=== PATIENT | male | born 1995 | race American Indian/Alaskan Native ===

== ENCOUNTER 2019-04-24 20:53 | Emergency (ER) | payer MEDICAID, OTHER ==
[~2019-04-24 20:53] MED LIST: Diphtheria,Pertussis(Acell),Tetanus Vaccine 0.5 ML SDV IM ONE; Iopamidol 612 MG/ML 100 ML Bottle IVPUSH ONE; Iopamidol 612 MG/ML 50 ML SDV IVPUSH ONE
[2019-04-24] MEDS ORDERED: fentaNYL 100 MCG/2 ML SDV IVPUSH ONE ×2 (20:56→22:11)
[2019-04-24 21:06] LABS: ANION GAP 17.5; CHLORIDE,CL 104 mmol/L (101-111); SODIUM,NA 137 mmol/L (135-145)
[2019-04-24] MEDS ORDERED: Sodium Chloride 0.9% 1,000 ML IV ONE (22:22)
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
== END 2019-04-24 23:28 ==
LOC: DL.ED 20:53
DX: S12.601A Unspecified nondisplaced fracture of seventh cervical vertebra, initial encounter for closed fracture (principal); S32.810A Multiple fractures of pelvis with stable disruption of pelvic ring, initial encounter for closed fracture; S01.01XA Laceration without foreign body of scalp, initial encounter; S37.012A Minor contusion of left kidney, initial encounter; F10.129 Alcohol abuse with intoxication, unspecified; Y90.6 Blood alcohol level of 120-199 mg/100 ml; Z23 Encounter for immunization; V89.2XXA Person injured in unspecified motor-vehicle accident, traffic, initial encounter
CPT/HCPCS: 12002; 36415; 51702; 70450; 71260; 72125; 72128; 72131; 74177; 80053; 80305-QW; 81001; 82150; 85025; 90471; 90715; 96361; 96374; 96376; 99285-25; G0390; G0480; J3010; J7030; Q9967